=== PATIENT | male | born 1930 | race Caucasian/White ===

== ENCOUNTER 2016-12-10 10:02 | Day surgery (SDC) | payer MEDICARE ==
[2016-12-10 12:40] VITALS: BP 163/61; PULSE 60; RESP 20; TEMP 97.4; O2SAT 99
--- NOTE | 2016-12-10 12:47 | RADRPT ---
EXAM DATE/TIME: 12/10/2016 12:15 [facility] COMPARISON: No previous studies available for comparison. INDICATIONS : Post thoracentesis. MEDICAL HISTORY : Hypertension. Carcinoma, bladder. TIA. BPH. SURGICAL HISTORY : CABG. Aortic valve repair. ENCOUNTER: Initial ACUITY: 1 day PAIN SCORE: 0/10 LOCATION: Left chest TECH NOTE: CSM(S)ADELSO CASAS MR#[id number] :32 Exam date/desc:December 10, 2016CHEST EXPIRATION ONLY FINDINGS: A single frontal expiratory view of the chest was performed. The lungs are symmetrically aerated and clear. No evidence of pneumothorax. Mediastinal structures are in the midline. The cardio-mediastinal contours and bronchopulmonary markings are unremarkable for an expiratory exam . Osseous structures are intact. CONCLUSION: Normal examination. There is no evidence of a pneumothorax on the left. Clips and wires suggest CABG. Israel Arce MD on December 10, 2016 at 12:45 Board Certified Radiologist. This report was verified electronically.
[2016-12-10 12:55] VITALS: BP 155/59; PULSE 66; RESP 18; O2SAT 99
--- NOTE | 2016-12-10 12:56 | RADRPT ---
EXAM DATE/TIME: 12/10/2016 11:28 [facility] COMPARISON: No previous studies available for comparison. INDICATIONS : Left plueral effusion. MEDICAL HISTORY : Benign prostatic hyperplasia, (BPH) Hypertension. SURGICAL HISTORY : Open heart surgery. ENCOUNTER: Initial ACUITY: 1 day PAIN SCORE: 0/10 LOCATION: Left thorax. FLUID: Total volume of 20 cc of clear, yellow fluid was removed. Fluid was sent to lab for ordered studies. TECHNIQUE: 1. Ultrasound guidance for thoracentesis. 2. Thoracentesis. The risks, benefits, and alternatives to ultrasound guided thoracentesis were explained to the patien t in lay simple terms, including the risk of bleeding and infection. Written and verbal informed con sent was obtained. Appropriate area for thoracentesis was marked under ultrasound guidance with the patient in the uprig ht position. Overlying skin was prepped and draped in the usual sterile fashion and with local anest hetic, a 22 gauge needle was placed within the left pleural space and approximately 20 cc aspirated. The patient tolerated the procedure well and the left the ultrasound suite in stable condition. [facility] radiograph is to be obtained. CONCLUSION: Uncomplicated ultrasound guided thoracentesis. Wild Mon MD on December 10, 2016 at 12:51 Board Certified Radiologist. This report was verified electronically.
[2016-12-10 13:10] VITALS: BP 156/60; PULSE 62; RESP 20; O2SAT 99
[2016-12-10 13:31] LABS: TOTAL PROTEIN,PLEURAL FLUID 3.9 GM/DL
[2016-12-10 14:13] LABS: PLEURAL FLUID LYMPHS 91 %
== END 2016-12-10 13:15 | disposition home or self-care (01) ==
LOC: HRAD 10:02 → HRIP 10:15 → HRAD 13:15
PROVIDERS: ATTEND Internal Medicine
DX: J90 Pleural effusion, not elsewhere classified (principal); I10 Essential (primary) hypertension; N40.0 Benign prostatic hyperplasia without lower urinary tract symptoms; Z85.51 Personal history of malignant neoplasm of bladder; Z86.73 Personal history of transient ischemic attack (TIA), and cerebral infarction without residual deficits; Z95.1 Presence of aortocoronary bypass graft
CPT/HCPCS: 32555; 36415; 71010; 82150; 82945; 82947; 83615; 83986; 84155; 84157; 87015; 87070; 87102; 87116; 87205; 87206; 88112; 88305; 89051; C1729

== ENCOUNTER 2017-05-02 13:41 | Emergency (ER) | payer OTHER, MEDICARE ==
[~2017-05-02] VITALS: Ht 177.8 cm; Wt 75.0 kg
[2017-05-02] MEDS ORDERED: TETANUS/DIPHTHERIA TOXOID ADULT 0.5 ML VIAL IM ONE (14:15)
[2017-05-02 14:26] VITALS: BP 136/67; PULSE 91; RESP 18; O2SAT 96
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
[2017-05-02] MEDS ORDERED: POTA-163 PO (14:36)
[2017-05-02] MEDS ORDERED: FURO1TAB60 PO (14:36)
[2017-05-02] MEDS ORDERED: EZET10 PO (14:36)
[2017-05-02] MEDS ORDERED: TAMS0.4C4 PO (14:36)
[2017-05-02] MEDS ORDERED: ROSU40 PO (14:36)
[2017-05-02] MEDS ORDERED: traMADol HCL 50 MG TAB PO ONE (15:00)
[2017-05-02] MEDS ORDERED: TRAM50TA PO (15:02)
== END 2017-05-02 15:39 | disposition home or self-care (01) ==
LOC: NEPC 13:41
DX: S81.812A Laceration without foreign body, left lower leg, initial encounter (principal); S81.811A Laceration without foreign body, right lower leg, initial encounter; M54.5 Low back pain; V43.52XA Car driver injured in collision with other type car in traffic accident, initial encounter; Y92.410 Unspecified street and highway as the place of occurrence of the external cause; Z23 Encounter for immunization; Z79.82 Long term (current) use of aspirin
CPT/HCPCS: 90471; 90714; 99283